=== PATIENT | male | born 1990 | race Hispanic/Latino ===

== ENCOUNTER 2018-02-28 22:08 | Emergency (ER) | payer OTHER ==
[2018-02-28 23:10] LABS: APPEARANCE,URINE Cloudy (CLEAR); BILIRUBIN,URINE Negative (NEGATIVE); COLOR,URINE Yellow (YELLOW); GLUCOSE, URINE (UA) >=1000 mg/dL (NEGATIVE); KETONES,URINE Trace mg/dL (NEGATIVE); LEUKOCYTE ESTERASE ,URINE Negative (NEGATIVE); NITRATE,URINE Negative (NEGATIVE); OCCULT BLOOD,URINE Negative (NEGATIVE); PROTEIN,URINE Negative (NEGATIVE)
[2018-02-28 23:26] LABS: BACTERIA,URINE Rare /HPF (None Seen); MUCUS,URINE Few LPF (None Seen); RBC,URINE None Seen /HPF (0-1); SQUAMOUS EPITHELIAL CELL,UR Rare /HPF (0-2); WBC,URINE 0-1 /HPF (0-1)
[2018-02-28 23:27] LABS: AMORPHOUS SEDIMENT,UR Many /LPF (None Seen)
[2018-03-01] MEDS ORDERED: HYDROCODONE/ACETAMINOPHEN 10/325 MG TAB ONE (01:04)
== END 2018-03-01 01:58 | disposition home or self-care (01) ==
LOC: EDH 22:08
DX: N50.811 Right testicular pain (principal); N50.812 Left testicular pain; N36.8 Other specified disorders of urethra; Z88.6 Allergy status to analgesic agent
CPT/HCPCS: 76870; 81001

== ENCOUNTER 2023-04-15 12:02 | Emergency (ER) | payer OTHER ==
[~2023-04-15] VITALS: Ht 170.2 cm; Wt 89.8 kg
[2023-04-15] MEDS ORDERED: SULF1TAB42 PO (17:23)
[2023-04-15] MEDS ORDERED: CEPH500B PO (17:23)
[2023-04-15 17:43] VITALS: BP 132/75
== END 2023-04-15 17:46 | disposition home or self-care (01) ==
LOC: EDH 12:02
DX: S80.869A Insect bite (nonvenomous), unspecified lower leg, initial encounter (principal); R07.81 Pleurodynia; L08.9 Local infection of the skin and subcutaneous tissue, unspecified; W57.XXXA Bitten or stung by nonvenomous insect and other nonvenomous arthropods, initial encounter; Y93.89 Activity, other specified; Y92.89 Other specified places as the place of occurrence of the external cause; Y99.8 Other external cause status